=== PATIENT | male | born 1995 | race Caucasian/White ===

== ENCOUNTER 2020-08-04 21:50 | Emergency (ER) | payer BC ==
[2020-08-04] MEDS ORDERED: Sodium Chloride 0.9% 10 ML Syringe FLUSH PRN (22:10)
--- NOTE | 2020-08-04 22:18 | EDM.PDOC ---
ED HPI GENERAL MEDICAL PROBLEM - General Chief Complaint: Fever Stated Complaint: POSS ALLERGIC REACTION Time Seen by Provider: 08/04/20 22:02 Source of Information: Reports: Patient, RN Notes Reviewed History Limitations: Reports: No Limitations - History of Present Illness INITIAL COMMENTS - FREE TEXT/NARRATIVE: Patient is a 25-year-old male who presents to the ER for a few different complaints. The patient had a recent dental work, and notes he had not been to the dentist in quite some time; roughly 9 years. He states that the dentist did a really deep cleaning on his teeth, so much so that the dentist was worried about possible infection, so he did give him a shot of antibiotics. Patient is not really sure what sort of antibiotics that he did receive however he relates that he had a penicillin allergy when he was a child. 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 The patient has had fevers, swollen right jaw, fatigue, and neck pain since the dental cleaning. Dental cleaning was on Friday of this last week. His did give him a dose of ibuprofen for his fever at around 8:30 PM, his fever was roughly 103 F. Patient is not maldonado ving pain anywhere, denies any cough or shortness of breath or any sort of nausea/vomiting/diarrhea. Right Jaw Pain Score (Numeric/FACES): 6 - Related Data Allergies Allergy/AdvReac Type Severity Reaction Status Date / Time Penicillins Allergy Anaphylactic Verified 08/04/20 22:05 Shock Home Meds: Home Meds Clindamycin HCl 300 mg PO QID 7 Days #28 capsule 08/04/20 [Rx] Past Medical History - Past Surgical History HEENT Surgical History: Reports: Tonsillectomy, Other (See Below) Other HEENT Surgeries/Procedures: L ear cyst removal Social & Family History - Tobacco Use Tobacco Use Status *Q: Never Tobacco User Second Hand Smoke Exposure: No - Caffeine Use Caffeine Use: Reports: Coffee - Recreational Drug Use Recreational Drug Use: No ED ROS ENT - Review of Systems Review Of Systems: Comprehensive ROS is negative, except as noted in HPI. ED EXAM, ENT - Physical Exam Exam: See Below Exam Limited By: No Limitations General Appearance: Alert, WD/WN, No Apparent Distress Mouth/Throat: Normal Inspection, Normal Lips, Normal Oropharynx, Normal Teeth, Gum Swelling (there is some erythema to his gums, and somewhat of a foul odor from mouth. No obvious abcess or lesions.) Head: Atraumatic, Normocephalic Respiratory/Chest: No Respiratory Distress, Lungs Clear, Normal Breath Sounds, No Accessory Muscle Use, Chest Non-Tender Cardiovascular: Normal Peripheral Pulses, Regular Rate, Rhythm, No Edema Extremities: Normal Inspection, Normal Capillary Refill Neurological: Alert, Oriented, Normal Cognition, No Motor/Sensory Deficits Psychiatric: Normal Affect, Normal Mood Skin: Warm, Dry, Intact, Normal Color, No Rash Course - Vital Signs Last Recorded V/S: Last Vital Signs Temp 98.9 F 08/04/20 21:55 Pulse 96 08/04/20 23:45 Resp 18 08/04/20 23:45 BP 151/95 H 08/04/20 23:45 Pulse Ox 97 08/04/20 23:45 - Orders/Labs/Meds Labs: Laboratory Tests 08/04/20 08/04/20 08/04/20 Range/Units 22:25 22:25 22:25 WBC 10.40 H (4.23-9.07) K/mm3 RBC 5.10 (4.63-6.08) M/mm3 Hgb 15.8 (13.7-17.5) gm/dl Hct 46.9 (40.1-51.0) % MCV 92.0 (79.0-92.2) fl MCH 31.0 (25.7-32.2) pg MCHC 33.7 (32.2-35.5) g/dl RDW Std Deviation 43.3 (35.1-43.9) fL Plt Count 161 L (163-337) K/mm3 MPV 11.3 (9.4-12.3) fl Neutrophils % (Manual) 85 H (40-60) % Band Neutrophils % 3 (0-10) % Lymphocytes % (Manual) 8 L (20-40) % Atypical Lymphs % 0 % Monocytes % (Manual) 4 (2-10) % Eosinophils % (Manual) 0 L (0.8-7.0) % Basophils % (Manual) 0 L (0.2-1.2) Platelet Estimate Adequate RBC Morph Comment Normal Sodium 140 (136-145) mEq/L Potassium 3.3 L (3.5-5.1) mEq/L Chloride 103 (98-107) mEq/L Carbon Dioxide 25 (21-32) mEq/L Anion Gap 15.3 H (5-15) BUN 13 (7-18) mg/dL Creatinine 1.1 (0.7-1.3) mg/dL Est Cr Clr Drug Dosing 120.56 mL/min Estimated GFR (MDRD) > 60 (>60) mL/min BUN/Creatinine Ratio 11.8 L (14-18) Glucose 104 (74-106) mg/dL Lactic Acid 1.6 (0.4-2.0) mmol/L Calcium 8.6 (8.5-10.1) mg/dL Total Bilirubin 0.5 (0.2-1.0) mg/dL AST 27 (15-37) U/L ALT 50 (16-63) U/L Alkaline Phosphatase 100 (46-116) U/L C-Reactive Protein 4.3 H* (<1.0) mg/dL Total Protein 7.5 (6.4-8.2) g/dl Albumin 3.7 (3.4-5.0) g/dl Globulin 3.8 gm/dL Albumin/Globulin Ratio 1.0 (1-2) Meds: Medications Discontinued Medications Generic Name Dose Route Start Last Admin Trade Name Freq PRN Reason Stop Dose Admin Clindamycin Phosphate 900 mg/ 50 mls @ 100 mls/hr 08/04/20 22:22 08/04/20 22:48 Premix IV 08/04/20 22:51 100 mls/hr ONETIME ONE Administration Sodium Chloride 1,000 mls @ 999 mls/hr 08/04/20 22:39 08/04/20 22:47 Normal Saline IV 08/04/20 23:39 999 mls/hr ONETIME ONE Administration Sodium Chloride 10 ml 08/04/20 22:10 08/04/20 22:48 Sodium Chloride 0.9% 10 Ml Syringe FLUSH 10 ml ASDIRECTED PRN Administration Keep Vein Open - Re-Assessments/Exams Free Text/Narrative Re-Assessment/Exam: 08/04/20 22:16 Patient presents to the ER for his multiple complaints, he thought he was having an allergic reaction to the antibiotic that was given to him on Friday however he should have had an allergic reaction prior to this it is definitely more likely that he is having ongoing bacterial infection. Due to his fever, and fev ers of chills and fatigue we will go ahead and get blood cultures, get IV started, get some baseline labs, give him a dose of IV antibiotics after cultures have been obtained and figure out disposition, on whether he can need to be discharged home with oral antibiotics safely or have to be admitted for his illness. 08/04/20 23:07 CBC demonstrates a mildly elevated white count at 10.8, with 85% neutrophils and 3 bands. Patient notes he is feeling better now. Plan will be to discharge home with oral antibiotics after his IV antibiotics have been given. As it is the end of my shift, I have talked the case over with Dr. Fu and he will watch the patient's labs and figure out disposition if there needs to be a change from my plan. Departure - Departure Time of Disposition: 23:08 Disposition: Home, Self-Care 01 Condition: Good Clinical Impression: Dental infection - Discharge Information *PRESCRIPTION DRUG MONITORING PROGRAM REVIEWED*: No *COPY OF PRESCRIPTION DRUG MONITORING REPORT IN PATIENT TONY: No Prescriptions: Clindamycin HCl 300 mg PO QID 7 Days #28 capsule Instructions: Fever, Adult, [id number] Referrals: PCP,None [Primary Care Provider] - Forms: ED Department Discharge Additional Instructions: You have been evaluated in the ED for your dental pain/infection. You have been provided with a script for Clindamycin. Please take this medication as directed. (1 tab QID for 7 days or until gone). Please note this antibiotic can take up to 48 hours to provide coverage. If you do not notice an improvement in the swelling within 3 days time I recommend you seek care for reevaluation for change in antibiotics. You were given your first dose of antibiotics in the ER by IV. This medication was electronically sent to the [facility] located near [facility]. This antibiotic can cause diarrhea, recommend that you start a probiotic while taking this medication. You may take 600mg Ibuprofen Q6H PRN for pain. Please return to the ED if your symptoms change or worsen. Sepsis Event Note (ED) - Evaluation Sepsis Screening Result: No Definite Risk
[2020-08-04] MEDS ORDERED: Clindamycin Phosphate in D5W 900 MG in Premix Bag 1 BAG IV ONE ×2 (22:22)
[2020-08-04] MEDS ORDERED: Sodium Chloride 0.9% 1,000 ML IV ONE (22:39)
== END 2020-08-05 | disposition home or self-care (01) ==
LOC: JD.ED 21:50
DX: K04.7 Periapical abscess without sinus (principal); Z88.0 Allergy status to penicillin
CPT/HCPCS: 36415; 80053; 83605; 85007; 85027; 86140; 87040; 96365; 99283; J3490; J7030

== ENCOUNTER 2021-06-13 12:06 | Emergency (ER) | payer BC ==
[2021-06-13] MEDS ORDERED: Sodium Chloride 0.9% 10 ML Syringe FLUSH PRN (12:19)
== END 2021-06-13 15:07 | disposition home or self-care (01) ==
LOC: JD.ED 12:06
DX: R07.89 Other chest pain (principal); R00.2 Palpitations; R03.0 Elevated blood-pressure reading, without diagnosis of hypertension; Z88.0 Allergy status to penicillin; Z86.16 Personal history of COVID-19
CPT/HCPCS: 36415; 71045; 71045-26; 80053; 83718; 83721; 83735; 83880; 84478; 84484; 85025; 85379; 85610; 85730; 93005; 93010; 93225; 93226; 99285; 99285-25